=== PATIENT | female | born 2000 | race Caucasian/White ===

== ENCOUNTER 2019-02-09 15:09 | Emergency (ER) | payer OTHER, SELFPAY ==
[2019-02-09 15:11] VITALS: BP 128/82; PULSE 74; RESP 16; TEMP 37.1; O2SAT 99; BMI 22.1
--- NOTE | 2019-02-09 15:27 | ED.VISSUMM ---
- ER Visit Summary Date of Service: 02/09/19 Chief Complaint: Room spinning History of Present Illness: The patient is a 18 F no significant past medical history other than reflux seen is seen in vascular surgery. Patient states after she woke up this morning she noticed room spinning dizziness. She denies any headache or head injury. No nausea, vomiting or diarrhea. No fever or chills. She is recently been well. States she is never had this before. Denies any weakness, numbness or tingling to her extremities. It is made worse with head movement and better when she lies completely still. Physical Examination: Young female vital signs are stable afebrile. She does not look septic or toxic. She is in no acute distress. H EENT exam normal. Pupils round reactive light. Extra motions are intact. TMs are normal. No wax. Neck nontender no lymphadenopathy. Lungs clear to auscultation bilaterally. Heart regular rhythm no murmur. Rate about 70. Abdomen soft nontender normal bowel sounds no peritoneal signs. Patient is moving all 4 extremities. Neurovascular intact. 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 Dorsi plantarflexion intact. Neurologically her exam is normal. NIH score is 0. Fingertip to nose and [id number] within normal limits. Normal speech. Extra motions are intact. No facial droop. She does have a positive Hallpike maneuver. With moving her head back and forth rotating from left to right and then sitting her up her dizziness got acutely worse. Test Results: None Emergency Department Course and Treatment: Patient be treated with p.o. Valium and reassess. Her exam and history are consistent with benign positional vertigo Treatment Plan: Treated as vertigo. Valium at night as needed. Antivert as needed during the day. Follow-up if not improving or return if worse. Disposition: Discharge Impression: Acute room spinning dizziness secondary to acute vertigo This note was generated with [employer] dictation software. It may contain incorrect words, spelling, and punctuation that were not noted in review of the chart prior to signing ED Disposition - Plan for ED Patient: Referrals: Ramirez Henley DO [Primary Care Provider] -
[2019-02-09] MEDS: diazePAM 5 MG Tablet PO (15:30)
--- NOTE | 2019-02-09 15:30 | ED.DEP ---
ED Disposition - Plan for ED Patient: Instructions: VERTIGO, Unspecified Prescriptions: Meclizine HCl [Antivert] 25 mg PO 4X/DAY PRN PRN #10 tab PRN Reason: Dizziness Prescription Printed Diazepam [Valium] 5 mg PO 4X/DAY PRN PRN 4 Days #10 tab PRN Reason: Vertigo Prescription Printed Referrals: Ramirez Henley DO [Primary Care Provider] - 3-5 Days if not improving Additional Instructions: Ivy for your symptoms of vertigo. Do not drive while using the Valium. You can also use the Antivert. The Antivert may work better for you while in school. More than likely the Valium will make you sleepy. Follow-up with your doctor if not improving return to ER if you are feeling worse.
== END 2019-02-09 16:46 | disposition home or self-care (01) ==
LOC: ED 15:43
PROVIDERS: Emergency Provider Emergency Medicine; Family Provider Preventive Medicine Occupational Medicine; PCP Preventive Medicine Occupational Medicine
DX: R42 Dizziness and giddiness (principal); K21.9 Gastro-esophageal reflux disease without esophagitis; Z72.0 Tobacco use
CPT/HCPCS: 99283

== ENCOUNTER 2020-03-23 22:47 | Emergency (ER) | payer OTHER, SELFPAY ==
[2020-03-23 22:47] VITALS: BP 158/107; PULSE 84; RESP 16; TEMP 36.6; O2SAT 100; BMI 25.1
--- NOTE | 2020-03-23 23:05 | CT_ITS ---
STUDY: CT ABDOMEN AND PELVIS WITH CONTRAST REASON FOR EXAM: Female, 19 years old. LOW ABD PAIN INTERMITTENT X 4 WEEKS/SEVERE TONIGHT. Patient had IUD placed 4 wk ago RADIATION DOSAGE (If Supplied By Facility): CTDIvol = ( 13.18 ) mGy, DLP = ( 690.44 ) mGycm TECHNIQUE: Transaxial images were obtained from the dome of the diaphragm to the symphysis pubis without oral contrast. Isovue 370 100ml was administered. Sagittal and coronal images were reconstructed. Individualized dose optimization techniques were used for this CT. COMPARISON: None. FINDINGS: The visualized lung bases are unremarkable. The visualized portions of the heart are within normal limits. Normal liver. Normal gallbladder and extrahepatic biliary system. Normal spleen. Normal pancreas. Normal bilateral adrenal glands. Normal right kidney. Normal left kidney. Normal visualized stomach. Normal small intestine. Significant fecal retention throughout the colon suggesting constipation. There is non-visualization of the appendix. Trace pelvic free fluid Normal abdominal aorta. Normal inferior vena cava. Normal retroperitoneum. Normal urinary bladder. Unremarkable uterus. Metallic IUD in the central endometrium. Normal abdominal wall. Normal osseous structures. CT/Abdomen/Pelvis W IV Cont ONLY IMPRESSION: IUD within the endometrium. Fecal retention throughout the colon suggesting constipation. Trace/physiologic pelvic free fluid. Nonvisualized appendix however, no secondary signs of acute appendicitis Electronically Signed: Te Gonzales DO at 0:11 EST Tel , Service support ,
--- NOTE | 2020-03-23 23:07 | ED.VIS.GEN ---
History of Present Illness Chief Complaint: Abd Pain Informant: Patient Onset: Weeks Context: Gradual Onset Timing: Continuous, Waxes and wanes Narrative: She is a 19-year-old female with no any significant medical history presenting with pelvic pain. Patient had an IUD, Kalpana, placed at [facility] about 4 weeks ago. Since then she has had vaginal spotting as well as pelvic pain. She describes as cramping. The pain has progressively worsened. She states it is now more intense and even her worst menstrual cramps. The pain does not radiate. She states it constant but fluctuates in intensity. Patient tried taking [id number] medications including ibuprofen and Tylenol with no relief. Patient was also prescribed 4 mg of tizanidine and she states she took 2 of those today and has had no relief. Patient was seen at the [facility] this week where she was evaluated with a pelvic exam and transvaginal ultrasound. Transvaginal ultrasound report is pulled up which showed that the IUD is appropriately positioned and she has normal blood flow to both ovaries. No acute abnormality was seen. Patient has associated nausea secondary to pain. She states she has had some intermittent diarrhea/sensation to have a bowel movement associated with the cramping. She denies any black or blood in her stool. She denies any vomiting. She denies any fever or chills. No other complaints at this time. Past Medical History - Allergies and Home Meds Allergies/Adverse Reactions: Allergies No Known Allergies Allergy (Verified 03/23/20 22:50) Primary Care Physician: Ramirez Henley DO [Primary Care Provider] - Past Medical History: None Surgical History: no surgical history Lives: Spouse/ Significant Other Smoking Status: Current every day smoker Review of Systems General: Denies: Chills, Fever, Sweats Eyes: Denies: Visual changes - bilaterally, Diplopia ENT: Denies: Rhinorrhea, Sore throat Cardiovascular: Denies: Chest pain, Palpitations Respiratory: Denies: Dyspnea, Cough, Dyspnea on exertion Gastrointestinal: Reports: Abdominal pain, Nausea. Denies: Vomiting, Diarrhea, Melena, Hematochezia Genitourinary: Reports: - - Vaginal spotting. Denies: Dysuria, Hematuria, Frequency Musculoskeletal: Denies: Back pain, Extremity Pain Skin: Denies: Rash, Wounds Neurological: Denies: Headache, Weakness, Numbness Physical Exam Vital Signs/Narrative: Vital Signs Temp Pulse Resp BP Pulse Ox 03/23/20 22:47 97.8 F 84 16 158/107 H 100 Inital Vital Signs reviewed: Yes General: Well nourished, Well developed, No Acute Distress Head: Normocephalic, Atraumatic Eyes: Perrl, EOMI ENT: Moist mucous membranes, No rhinorrhea Neck: Supple, Nontender Cardiovascular: Regular rate, Regular rhythm, No murmurs Respiratory: No distress, CTA bilaterally, Chest nontender Abdomen: Soft, Nontender, Nondistended, Normal bowel sounds. Negative for: Guarding, Rebound tenderness Back: Nontender, Normal Inspection. Negative for: CVA tenderness Extremities: Nontender, No edema Skin: Normal color, No rash Neurological: Alert, Oriented x3, Cranial nerves II-XII grossly intact, Normal Strength, Normal Sensation Psychological: Normal affect, Normal Mood Diagnostic/Tx/Re-eval Clinical Impression(s) from Imaging Studies Abdomen/Pelvis CT 03/23/20 23:05 IMPRESSION: IUD within the endometrium. Fecal retention throughout the colon suggesting constipation. Trace/physiologic pelvic free fluid. Nonvisualized appendix however, no secondary signs of acute appendicitis Electronically Signed: Te Gonzales DO at 0:11 EST Tel , Service support , Laboratory Data 03/23/20 03/23/20 03/23/20 23:12 23:20 23:20 WBC 7.1 RBC 4.10 L Hgb 13.2 Hct 39.0 MCV 95.1 MCH 32.2 H MCHC 33.8 RDW Std Deviation 41.2 RDW Coeff of Roseanna 11.8 Plt Count 301 MPV 9.0 Immature Gran % (Auto) 0.100 Neut % (Auto) 56.4 Lymph % (Auto) 32.8 [place] % (Auto) 8.4 Eos % (Auto) 1.7 Baso % (Auto) 0.6 Absolute Neuts (auto) 4.0 Absolute Lymphs (auto) 2.34 Nucleated RBC % 0 Sodium 137 Potassium 3.8 Chloride 106 Carbon Dioxide 26.0 Anion Gap 5 BUN 12 Creatinine 0.81 Estim Creat Clear Calc 115.78 Est GFR (MDRD) Af Amer 116 Est GFR (MDRD) Non-Af 96 BUN/Creatinine Ratio 14.9 Glucose 88 Calcium 8.7 Total Bilirubin 0.20 AST 15 ALT 19 Alkaline Phosphatase 45 Total Protein 7.3 Albumin 4.0 Globulin 3.3 Albumin/Globulin Ratio 1.2 Urine Color Yellow Urine Clarity Clear Urine pH 6.0 Ur Specific [place] 1.025 Urine Protein Negative Urine Glucose (UA) Normal Urine Ketones Negative Urine Occult Blood 250 H Urine Nitrite Negative Urine Bilirubin Negative Urine Urobilinogen Normal Ur Leukocyte Esterase 25 H Urine RBC 5-10 SEEN Urine WBC 0-5 SEEN Ur Squamous Epith Cells 0-5 SEEN Urine Bacteria 0 SEEN Urine Mucus 0 SEEN Urine Test Negative - Medical Decision Making Evaluated for worsening lower abdominal/pelvic pain since having an IUD placed. She is previously had this evaluated by women's health and had a transvaginal ultrasound today. Other does not seem to be any findings consistent with malpositioning or ovarian cyst/torsion as a cause of her pain. Patient is hemodynamically stable and her vital signs are significant only for mild hypertension. Patient has a benign physical exam. She has nonspecific tenderness in her lower pelvic region. As patient had a pelvic exam and evaluation by woman[facility] clinic this week, I do not think a repeat exam is indicated at this time. I will obtain blood work and CT of the abdomen pelvis looking for secondary cause of her pain. Patient does not have any signs of acute infection or [place] cannot laboratory abnormalities. CT abdomen pelvis shows trace pelvic fluid and a moderate degree of constipation. IUD is again visualized and in the appropriate spot. Patient is counseled that she does have a history of constipation and a family history of constipation. She notes she is never had pain quite like this before. She will be given Bentyl and will take [id number] laxative at home to help with her constipation. She will follow-up with her risk management professional office and ultimately knows that she can get her IUD removed there if she chooses. Patient is counseled on signs and symptoms requiring return to the emergency room. Patient verbalizes agreement and understand this plan. Patient discharged home in stable and improved condition. ED Disposition - Plan for ED Patient: Disposition: Home or Assisted Living Diagnosis: Abdominal pain of unknown cause, Constipation Instructions: ED Abdominal Pain Unkn Cause Fem, ED Constipation (Adult) Prescriptions: Dicyclomine HCl [Bentyl] 20 mg PO TIDAC #20 cap Transmission Status: Pending to [facility] Referrals: Ramirez Henley DO [Primary Care Provider] - Additional Instructions: Please take a laxative at home to help with your constipation. Continue to alternate Tylenol and ibuprofen as well as tizanidine prescribed to you. Follow-up with your [employer] if this pain persisted as you might need your IUD removed.
[2020-03-23] MEDS: Morphine 4 MG/ML Syringe IV (23:23)
[2020-03-23] MEDS: Ondansetron 4 MG/2 ML Vial IV (23:23)
[2020-03-23 23:30] LABS: Bacteria 0 SEEN /hpf (None Seen); Mucous, Urine 0 SEEN /hpf (<or=2+)
[2020-03-23 23:31] LABS: Absolute Lymphocyte Count 2.34 X10^3/uL (0.83-4.51); Basophil# 0.04 X10^3/uL; Basophil% 0.6 % (0-1); Eosinophil# 0.12 X10^3/uL; Eosinophils% 1.7 % (0-5); Hemoglobin 13.2 g/dL (12.0-15.0); Lymphocyte # 2.34 X10^3/ul (4.0); Lymphocyte % 32.8 % (19-41); Mean Corp Hgb Conc 33.8 g/dL (32-36); Mean Corpuscular Hgb 32.2 pg (27.0-32.0); Mean Corpuscular Volume 95.1 fL (81-99); Monocyte% 8.4 % (0-10); NRBC Flagged by Analyzer 0 % (0-5); Neutrophil # 4.03 X10^3/uL (2.7-7.7); Neutrophil % 56.4 % (47-70); Platelet Count 301 K/mm3 (150-450); RBC Distribution Width CV 11.8 % (11.6-14.6); RBC Distribution Width SD 41.2 fl (35.1-43.9); White Blood Count 7.1 K/mm3 (4.4-11.0)
[2020-03-23 23:32] LABS: Color, Urine Yellow (Yellow); Glucose, Dipstick Normal (Normal); Ketone-Dipstick Negative (Negative); Leukocyte Esterase-Dipstick 25 /ul (Negative); Nitrite-Dipstick Negative (Negative); Occult Blood-Urine 250 /ul (Negative); Protein-Dipstick Negative (Negative); Specific Gravity, Urine 1.025 (1.002-1.030); Urine Bilirubin Dipstick Negative (Negative); Urine Clarity Clear (Clear); Urine Urobilinogen Normal (Normal)
[2020-03-23 23:38] LABS: Internal QC Validated? YES +Cl - CLEAR BKGD; Pregnancy, Urine Negative Negative; Red Blood Cells-Urine 5-10 SEEN /hpf (0-5); Squamous Epithelial Cells - UA 0-5 SEEN /hpf (5-10); White Blood Cells 0-5 SEEN /hpf (0-5)
[2020-03-23 23:53] LABS: ALB/GLOB Ratio 1.2 RATIO (0.9-2.4); AST(SGOT) 15 U/L (15-37); Alanine Aminotransfer ALT/SGPT 19 U/L (13-56); Alkaline Phosphatase 45 U/L (45-117); Anion Gap 5 (5-15); BUN 12 mg/dL (7-18); BUN/Creat Ratio 14.9 RATIO (10-20); Calcium,Total 8.7 mg/dL (8.5-10.1); Chloride 106 mmol/L (98-107); Creatinine, Serum 0.81 mg/dL (0.55-1.02); EST Glomerular Filtration Rate 96 mL/min (>60); Est Glom Filt Rate - Afr Amer 116 mL/min (>60); Estimated Creatinine Clearance 115.78 ml/min; Globulin 3.3 g/dL (2.2-4.2); Glucose 88 mg/dL (74-106); Potassium 3.8 mmol/L (3.5-5.1); Protein, Total 7.3 g/dL (6.4-8.2); Sodium Level 137 mmol/L (136-145)
[2020-03-24] MEDS: Dicyclomine 10 MG Capsule 20 MG PO (00:45)
== END 2020-03-24 00:50 | disposition home or self-care (01) ==
PROVIDERS: Emergency Provider Emergency Medicine; PCP Preventive Medicine Occupational Medicine
DX: R10.9 Unspecified abdominal pain (principal); K59.00 Constipation, unspecified; R11.0 Nausea; N94.6 Dysmenorrhea, unspecified; R10.2 Pelvic and perineal pain; Z97.5 Presence of (intrauterine) contraceptive device; F17.200 Nicotine dependence, unspecified, uncomplicated
CPT/HCPCS: 74177; 80053; 81001; 81025; 85025; 96374; 96375; 99284; Q9967; A4216; J2405

== ENCOUNTER 2021-02-06 13:54 | Emergency (ER) | payer OTHER, SELFPAY ==
[2021-02-06 13:54] VITALS: BP 120/52; PULSE 64; RESP 16; TEMP 35.7; O2SAT 100; BMI 28.0
[2021-02-06 14:57] LABS: Absolute Lymphocyte Count 0.91 X10^3/uL (0.83-4.51); Basophil# 0.03 X10^3/uL; Basophil% 0.3 % (0-1); Eosinophil# 0.02 X10^3/uL; Eosinophils% 0.2 % (0-5); Hemoglobin 12.5 g/dL (12.0-15.0); Lymphocyte # 0.91 X10^3/ul (0.83-4.51); Lymphocyte % 9.4 % (19-41); Mean Corp Hgb Conc 33.8 g/dL (32-36); Mean Corpuscular Hgb 30.9 pg (27.0-32.0); Mean Corpuscular Volume 91.4 fL (81-99); Mean Platelet Vol. 9.6 fl (6.2-12.0); Monocyte# 0.64 X10^3/uL; Monocyte% 6.6 % (0-10); NRBC Flagged by Analyzer 0 % (0-5); Neutrophil # 8.02 X10^3/uL (2.7-7.7); Neutrophil % 83.2 % (47-70); Platelet Count 276 K/mm3 (150-450); RBC Distribution Width CV 12.8 % (11.6-14.6); RBC Distribution Width SD 42.6 fl (35.1-43.9); Red Blood Count 4.05 M/mm3 (4.2-5.4); White Blood Count 9.7 K/mm3 (4.4-11.0)
[2021-02-06] MEDS: 0.9% Normal Saline 1,000 ML 999 ML IV ×2 (15:05→18:41)
[2021-02-06 15:12] LABS: Anion Gap 8 (5-15); BUN 7 mg/dL (7-18); Chloride 106 mmol/L (98-107); Creatinine, Serum 0.63 mg/dL (0.55-1.02); EST Glomerular Filtration Rate 126 mL/min (>60); Est Glom Filt Rate - Afr Amer 152 mL/min (>60); Estimated Creatinine Clearance 147.62 ml/min; Glucose 85 mg/dL (74-106); Potassium 3.8 mmol/L (3.5-5.1); Sodium Level 138 mmol/L (136-145)
[2021-02-06 15:16] LABS: Internal QC Validated? YES +Cl - CLEAR BKGD
[2021-02-06 15:17] LABS: Pregnancy, Serum, hCG Quali. POSITIVE Negative
[2021-02-06 17:35] VITALS: BP 107/60; O2SAT 100
[2021-02-06 17:37] LABS: Red Blood Cells-Urine 0 SEEN /hpf (0-5)
[2021-02-06 17:41] LABS: Color, Urine Yellow (Yellow); Glucose, Dipstick 50 mg/dl (Normal); Leukocyte Esterase-Dipstick 25 /ul (Negative); Nitrite-Dipstick Negative (Negative); Occult Blood-Urine Negative /ul (Negative); Protein-Dipstick 30 mg/dl (Negative); Specific Gravity, Urine 1.025 (1.002-1.030); Urine Bilirubin Dipstick Negative (Negative); Urine Clarity Clear (Clear); Urine Urobilinogen 1 mg/dl (Normal)
[2021-02-06 17:42] LABS: Ketone-Dipstick 150 mg/dl (Negative)
--- NOTE | 2021-02-06 17:55 | EX.ED.DYSGE1 ---
HPI History of Present Illness Chief Complaint: Nausea/Vomiting Informant: patient Narrative Narrative: Patient is approximately 8 weeks . She has had some nausea vomiting with morning sickness for about 3 weeks. She has been controlling it with occasional Phenergan. However just controlling her diet and eating crackers helps the most. The last day she is just had more symptoms. The nausea will go away. She is not eating and drinking. She just feels dehydrated. She had mild epigastric soreness but that is gone. She never has had pelvic pain. She has no bleeding or discharge or dysuria. After I see her, she is already received IV fluids and is already feeling much better. PFSH PFSH Medical History no medical history Home Medications esomeprazole magnesium 20 mg PO DAILY 02/09/19 [History Last Taken Unknown] meclizine 25 mg PO 4X/DAY PRN PRN #10 tab 02/09/19 [Rx Last Taken Unknown] dicyclomine 20 mg PO TIDAC #20 cap 03/24/20 [Rx Last Taken Unknown] doxylamine-pyridoxine (vit B6) [Diclegis] 1 tab PO DAILY #20 tab 02/06/21 [Rx Last Taken Unknown] ondansetron 4 mg PO Q8H PRN #15 tab 02/06/21 [Rx Last Taken Unknown] Allergy/AdvReac Type Severity Reaction Status Date / Time morphine Allergy Rash Verified 02/06/21 14:05 Social History Smoking Status: Never smoker ROS ROS ED Constitutional Constitutional ED: Denies chills or fever(s) ENT ENT ED: Denies rhinorrhea or sore throat Cardiovascular Cardiovascular: Denies chest pain Respiratory/Chest Respiratory/Chest: Denies dyspnea Gastrointestinal Gastrointestinal: Reports nausea and vomiting; Denies abdominal pain or diarrhea Genitourinary Genitourinary ED: Denies dysuria, hematuria or urinary frequency Musculoskeletal Musculoskeletal: Denies myalgias Integumentary Denies rash Neurologic Neurologic: Denies headache(s) Psychiatric Psychiatric: Denies anxiety or depression Endocrine Endocrinology: Denies polydipsia or polyuria Allergic/Immunologic Allergic/Immunologic ED: Denies mouth swelling or urticaria EXAM Physical Exam Const Vital Signs: 02/06/21 13:54 02/06/21 17:35 02/06/21 18:40 Temperature 96.3 F L Temperature Source Temporal Pulse Rate 64 61 Respiratory Rate 16 15 Blood Pressure 120/52 L 107/60 82/59 L Blood Pressure Mean 74 75 66 Pulse Ox 100 100 100 Oxygen Delivery Method Room Air Room Air Room Air Positive well nourished and well developed General Appearance ED: well developed and NAD; Negative for cyanotic, diaphoretic or pallor HEENT Reports dry mucous membranes Mouth ED: Yes dry mucous membranes Mouth: dry mucous membranes Eyes General Eye ED: Negative for pale conjunctiva Neck no JVD Resp normal respiratory effort Cardio regular rate and regular rhythm GI normal to inspection, nondistended, normoactive bowel sounds, non-tender and non-distended Palpation: soft Back/Spine no CVA tenderness Extremity normal to inspection Neuro Sensorium / Orientation: alert Psych mental status grossly normal Skin no rashes or lesions noted and no wounds General Skin Exam: Negative for jaundice or pallor MDM MDM MDM Narrative Medical decision making narrative: Blood work shows normal CBC and electrolytes. Urine shows no sign of infection. Patient is feeling better. We will get her home on pyridoxine and Zofran. She already has some Phenergan. She will follow up with her OB. Lab Data Attestation: I reviewed the patient's lab results. Labs: Laboratory Results - last 24 hr 02/06/21 02/06/21 02/06/21 14:50 14:50 14:50 WBC 9.7 RBC 4.05 L Hgb 12.5 Hct 37.0 MCV 91.4 MCH 30.9 MCHC 33.8 RDW Std Deviation 42.6 RDW Coeff of Roseanna 12.8 Plt Count 276 MPV 9.6 Immature Gran % (Auto) 0.300 Neut % (Auto) 83.2 H Lymph % (Auto) 9.4 L [place] % (Auto) 6.6 Eos % (Auto) 0.2 Baso % (Auto) 0.3 Absolute Neuts (auto) 8.0 H Absolute Lymphs (auto) 0.91 Nucleated RBC % 0 Sodium 138 Potassium 3.8 Chloride 106 Carbon Dioxide 24.0 Anion Gap 8 BUN 7 Creatinine 0.63 Estim Creat Clear Calc 147.62 Est GFR (MDRD) Af Amer 152 Est GFR (MDRD) Non-Af 126 BUN/Creatinine Ratio 11.0 Glucose 85 Calcium 9.0 Serum , Qual POSITIVE H Urine Color Urine Clarity Urine pH Ur Specific [place] Urine Protein Urine Glucose (UA) Urine Ketones Urine Occult Blood Urine Nitrite Urine Bilirubin Urine Urobilinogen Ur Leukocyte Esterase Urine RBC Urine WBC Ur Squamous Epith Cells Urine Bacteria Urine Mucus 02/06/21 17:30 WBC RBC Hgb Hct MCV MCH MCHC RDW Std Deviation RDW Coeff of Roseanna Plt Count MPV Immature Gran % (Auto) Neut % (Auto) Lymph % (Auto) [place] % (Auto) Eos % (Auto) Baso % (Auto) Absolute Neuts (auto) Absolute Lymphs (auto) Nucleated RBC % Sodium Potassium Chloride Carbon Dioxide Anion Gap BUN Creatinine Estim Creat Clear Calc Est GFR (MDRD) Af Amer Est GFR (MDRD) Non-Af BUN/Creatinine Ratio Glucose Calcium Serum , Qual Urine Color Yellow Urine Clarity Clear Urine pH 5.0 Ur Specific [place] 1.025 Urine Protein 30 H Urine Glucose (UA) 50 H Urine Ketones 150 A* Urine Occult Blood Negative Urine Nitrite Negative Urine Bilirubin Negative Urine Urobilinogen 1 H Ur Leukocyte Esterase 25 H Urine RBC 0 SEEN Urine WBC 0-5 SEEN Ur Squamous Epith Cells 0-5 SEEN Urine Bacteria 1+ Urine Mucus 2+ Discharge Plan Triage Chief Complaint: Nausea/Vomiting ED Provider: Zack Flood Dx/Rx/DC Orders Clinical Impression: Hyperemesis gravidarum, Dehydration Prescriptions: New ondansetron 4 mg tablet,disintegrating 4 mg PO Q8H PRN (Reason: nausea and vomiting) Qty: 15 RF: 0 doxylamine-pyridoxine (vit B6) [Diclegis] 10-10 mg tablet,delayed release (DR/EC) 1 tab PO DAILY Qty: 20 RF: 0 No Action esomeprazole magnesium 20 MG capsule 20 mg PO DAILY RF: 0 meclizine 25 MG tablet 25 mg PO 4X/DAY PRN PRN (Reason: Dizziness) Qty: 10 RF: 0 dicyclomine 10 MG capsule 20 mg PO TIDAC Qty: 20 RF: 0 Primary Care Provider: Ramirez Henley Referrals: Ramirez Henley DO [Primary Care Provider] - 3-5 Days Activity Restrictions/Additional Instructions: Follow-up with your patient admitting representative in the next few days. Disposition Disposition: Home, Self Care
[2021-02-06 18:17] LABS: Bacteria 1+ /hpf (None Seen); Mucous, Urine 2+ /hpf (<or=2+); Squamous Epithelial Cells - UA 0-5 SEEN /hpf (5-10); White Blood Cells 0-5 SEEN /hpf (0-5)
[2021-02-06] MEDS: Ondansetron 4 MG/2 ML Vial IV (18:33)
[2021-02-06 18:40] VITALS: BP 82/59; PULSE 61; RESP 15; O2SAT 100
[2021-02-06 19:41] VITALS: BP 105/55; PULSE 59; RESP 15; O2SAT 97
== END 2021-02-06 19:43 | disposition home or self-care (01) ==
PROVIDERS: Emergency Provider Emergency Medicine; PCP Preventive Medicine Occupational Medicine; Visit Provider Emergency Medicine
DX: O21.1 Hyperemesis gravidarum with metabolic disturbance (principal); Z3A.08 8 weeks gestation of pregnancy; O99.281 Endocrine, nutritional and metabolic diseases complicating pregnancy, first trimester; E86.0 Dehydration
CPT/HCPCS: 80048; 81001; 84703; 85025; 96361; 96374; 99282; J7030; A4216; J2405